=== PATIENT | female | born 1970 | race Caucasian/White ===

== ENCOUNTER → 2017-10-14 | Outpatient (CLI) | payer BC, OTHER ==
[~2017-10-14] VITALS: Ht 149.9 cm; Wt 78.0 kg
[~2017-10-14] MED LIST: IBUPROFEN 800800 M1 PO; LIORESAL 10 MG10 MG PO; LOSARTAN-HCTZ1 EACH PO; METFORMIN HCL1000 MG PO; NABUMETONE 500500 M1 PO; NEURONTIN 300300 M1 PO; PERCOCET PO
--- NOTE | ~2017-10-14 | HPC ---
[facility] [address] [place] [address] PAIN MANAGEMENT CONSULTATION Name: YONATHAN MONZON [id number] Admission: 10/14/17 Attend Phys: Aureliano Cardenas DO Discharge: Date of : 74 Report #: [id number] THIS REPORT FOR: //name// CC: [facility] physician/PCP Aureliano MARTINS DATE OF SERVICE: 10/14/2017 REFERRING PHYSICIAN: LAKSHMI Benson CHIEF COMPLAINT: Neck pain, right upper extremity pain with paresthesias. HISTORY OF PRESENT ILLNESS: As you know, the patient is a 47-year-old female with longstanding history of back pain issues and neck pain issues. The patient states her neck pain began somewhere between 1997 and progressively worsened until 2013 where it reached a level of 6/10. The patient indicates that she has sought chiropractic manipulation, which has helped her neck pain and right upper extremity pain. She continues to experience low back pain, right lower extremity pain with numbness and tingling into her big toe. She has been referred to our service by her physician property assistant for assessment and possible cervical epidural injections for her cervical radiculopathy. The patient states her pain is steady, constant, periodic, describes pain as shooting, pulling, gnawing, sharp, stabbing and tender, places current pain score 6/10, daily average at 5 to 6/10, worst pain has been 10/10. The patient states that bending, lifting, carrying exacerbates symptoms; sitting, lying down, pain medications and the use of a TENS machine tends to improve pain. The patient has been referred to our service to trial cervical epidural injection and determine if symptoms will improve from a cervical radicular standpoint. PAST MEDICAL HISTORY: 1. Hypertension. 2. Chronic pain. PAST SURGICAL HISTORY: 1. Bilateral salpingo-oophorectomy. 2. Hysterectomy with adhesion takedown. SOCIAL HISTORY: The patient denies tobacco, alcohol, IV or illicit drug use. 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 She is working, not receiving workmen's compensation nor is she trying to obtain disability benefits. She is unaccompanied today. REVIEW OF SYSTEMS: Positive for night sweats, fatigue, weakness, frequent and recurrent headaches, asthma, numbness and tingling sensations involving the right upper extremity and right lower extremity. All other review of systems [address] [address] PAIN MANAGEMENT CONSULTATION Name: YONATHAN MONZON Room #: REG CLAnh Donovan#: [id number] Admission: 10/14/17 Attend Phys: Aureliano Cardenas DO Discharge: Date of : 74 Report #: [id number] negative per 12-point review of systems other than those listed in history of present illness. Pain impact score 44/70, indicating [id number] interference of daily activities secondary to pain. ALLERGIES: No reported drug allergies. CURRENT MEDICATIONS: Losartan/hydrochlorothiazide 50/12.5 mg once a day, ibuprofen 800 mg 3 times a day, baclofen 10 mg 3 times a day, oxycodone/acetaminophen 5/325 one tab p.o. q. 4 hours p.r.n. for pain. IMAGING: MRI cervical spine obtained 09/16/2017 shows C2-C3 unremarkable, C3-C4 shows spinal canal is adequate. Mild left uncovertebral degenerative changes, right neural foraminal area is adequate. Mild left neural foraminal stenosis, C4-C5. Central canal is minimally narrowed to 9 mm, severe neural foraminal compromise. C5-C6, severe neural foraminal compromise bilaterally, greater on the right. Central canal narrowed to 7 mm, ventral and subarachnoid space contacted the ventral cord. C6-C7, severe right, moderate left foraminal compromise, central canal appears minimally narrowed and C7-T1 unremarkable. PHYSICAL EXAMINATION: VITAL SIGNS: Blood pressure 151/81, pulse 85, respiratory rate 16, unlabored. The patient is 98% on room air. Height 4 feet 11 inches tall, weight 172 pounds, BMI calculated 34.7. GENERAL: Well-developed, well-nourished, well-hydrated exogenously obese 47-year-old female appearing her stated age. She is placing current pain score at 6/10. HEENT: Normocephalic, atraumatic. Pupils equal, round, reactive to light. Extraocular muscles are intact. Sclerae nonicteric without injection. NEUROLOGIC: Cranial nerves 2 through 12 grossly intact. Speech is fluent. The patient deemed a fair historian. LUNGS: Clear, no wheeze, rhonchi or rales. CARDIOVASCULAR: Regular. No appreciable gallop or rub. ABDOMEN: Soft, obese, nondistended. EXTREMITIES: Show no clubbing, no cyanosis, no edema. MUSCULOSKELETAL: Upper extremity strength appears equal and symmetrical 5/5, muscle bulk and tone equal and symmetrical in upper extremities. Spurling's test is positive on the right, negative left. Deep tendon reflexes are symmetrical at biceps and triceps. Cervical provocation testing including extension and lateral flexion to the right intensify neck pain. ASSESSMENT: 1. Cervical radiculopathy. 2. Displacement of cervical intervertebral disk with radiculopathy. 3. Mild cervical spinal stenosis. [address] [place] [address] PAIN MANAGEMENT CONSULTATION Name: YONATHAN MONZON Room #: REG MARISSA Tyrell.#: [id number] Admission: 10/14/17 Attend Phys: Aureliano Cardenas DO Discharge: Date of : 74 Report #: [id number] 4. Cervical spondylosis with radiculopathy. PLAN: 1. Based on today's physical exam, history the patient has provided, the description the patient uses in regards to pain as well as the location of symptoms and radiation down the right arm, the like source of the patient's pain is a cervical radiculopathy. Given the distribution of symptoms, it appears that the symptoms are radiating from the C5-C6 level which does correlate with the distribution of numbness and tingling into the right hand. We have discussed with the patient the findings of the MRI. We took nearly 24 minutes of time discussing the imaging study and how it correlates to the patient's symptoms. After this discussion, we began discussing treatment options, the following was discussed with the patient. 2. The patient and I discussed treatment options, which would include physical therapy, stretching exercises and traction techniques. We discussed medication management with neuropathic pain medications. We discussed cervical epidural injections for which the patient was referred to our clinic and surgical options. After reviewing the risks and benefits of all proposed treatment options, the patient requested to undergo a cervical epidural injection. 3. The patient and I discussed that third democrat payer restrictions do require that authorization be obtained before the patient could undergo this procedure. Authorization could take anywhere from 4-7 working days, we will begin the process immediately. Once we have achieved authorization, we will have the patient return in followup visit to undergo cervical epidural injection under fluoroscopic guidance. We will contact the patient once the authorization has been obtained so that we can schedule her back as quickly as possible. 4. No medication changes were made at today's visit. The patient will continue current medical therapy as previously prescribed. 5. We will see the patient back in followup visit for the requested cervical epidural injection once authorization has been obtained. 6. We wish to thank you for the opportunity to see the patient in consultation. We will keep you apprised of her response to treatment as we address her cervical radicular symptoms with the cervical epidural injections. Again, we wish to thank you for the opportunity to see her in consultation. <ELECTRONICALLY SIGNED> By: Aureliano Cardenas DO 10/22/17 1131 [id number] Aureliano Cardenas DO /nt
--- NOTE | ~2017-10-14 | HPC ---
[facility] [address] [place] [address] PAIN MANAGEMENT CONSULTATION Name: YONATHAN MONZON Room #: REG [facility] Donovan#: [id number] Admission: 10/14/17 Attend Phys: Aureliano Cardenas DO Discharge: Date of : 74 Report #: [id number] THIS REPORT FOR: //name// CC: [facility] physician/PCP Aureliano MARTINS HISTORY OF PRESENT ILLNESS: As you know, the patient is a 47-year-old female with longstanding history of low back pain, right lower extremity pain with paresthesias, neck pain, right upper extremity pain with paresthesias. The patient was referred to our clinic for evaluation for chronic neck pain issues that began in 1997 and chronic low back pain issues that began in 2013. She states she seeks evaluation and treatment with chiropractor for her neck pain, this resolves her symptoms fairly consistently, but continues to experience numbness and tingling that radiates from the neck to the right fourth and fifth digits. She also continues to experience low back pain, right lower extremity pain and paresthesias that radiates from the low back all the way to the great toe on the right side. She indicates her pain is steady, constant, periodic, describes pain as shooting, pulling, gnawing, sharp, stabbing, tender, numbness and tingling. Places current pain score at 6/10, daily average of 5/10, worst pain has been is 10/10. The patient states bending, lifting, carrying exacerbate symptoms; sitting, lying down, pain medications and TENS unit tends to improve pain. She has been referred to our service to discuss options for treatment for suspected cervical radicular symptoms and suspected lumbar radicular symptoms. PAST MEDICAL HISTORY: 1. Hypertension. 2. Chronic neck pain. 3. Chronic low back pain. PAST SURGICAL HISTORY: 1. Bilateral salpingo-oophorectomy. 2. Hysterectomy. 3. Removal of adhesions. SOCIAL HISTORY: The patient denies tobacco, alcohol, IV or illicit drug use. 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 She is working, not receiving workmen's compensation. She is not in litigation in regards to her pain. She is accompanied by her who is present in room today. REVIEW OF SYSTEMS: Positive for night sweats, fatigue, weakness, frequent and recurrent headaches, asthma, wheezing, numbness and tingling sensations involving the right upper extremity and right lower extremity, chronic neck pain, chronic low back pain. All other review of systems negative per 12-point review of systems other than those listed in history of present illness. Pain impact score 44/70. [address] [address] PAIN MANAGEMENT CONSULTATION Name: SANAM MONZONRALEIGH PERDOMO Room #: REG CLAnh Man#: [id number] Admission: 10/14/17 Attend Phys: Aureliano Cardenas DO Discharge: Date of : 74 Report #: [id number] ALLERGIES: No known drug allergies. CURRENT MEDICATIONS: Losartan/hydrochlorothiazide 50/12.5 mg 1 tab per day, ibuprofen 800 mg t.i.d., baclofen 10 mg p.o. t.i.d. p.r.n., oxycodone/acetaminophen 5/325 one tab p.o. q. 8 hours p.r.n. for pain. IMAGING: MRI cervical spine obtained 09/16/2017 shows C2-C3 unremarkable. C3-C4, spinal canal is adequate, mild left uncovertebral degenerative changes, right neural foraminal overall appearance is adequate, mild narrowing of the left neural foramen. C4-C5, minimal disk osteophyte complex central canal minimally narrowed, mild lateral recess stenosis, uncovertebral and facet arthropathy, fairly severe neural foraminal compromise bilaterally. C5-C6, minimal osteophyte complex, formation of central canal narrowing to 7 mm, uncovertebral and degenerative changes, severe neural foraminal compromise bilaterally right greater than left. C6-C7, minimal disk osteophyte complex, central canal narrowed to 9 mm, bilateral uncovertebral degenerative changes severe right, moderately severe left neural foraminal compromise. C7-T1 unremarkable. PHYSICAL EXAMINATION: VITAL SIGNS: Blood pressure 151/81, pulse 85, respiratory rate 16 and unlabored. The patient is 98% on room air. Height 4 feet 11 inches tall, weight 172 pounds, BMI calculated at 34.7. GENERAL: Well-developed, well-nourished, well-hydrated exogenously obese 47-year-old female. She appears her stated age. She is placing current pain score at 6/10. HEENT: Normocephalic, atraumatic. Pupils equal, round, reactive to light. Extraocular muscles are intact. Sclerae nonicteric without injection. NEUROLOGIC: Cranial nerves 2-12 grossly intact. Speech is fluent. The patient deemed a fair historian. LUNGS: Clear. No wheeze, rhonchi or rales. CARDIOVASCULAR: Regular. No appreciable gallop, no rub. ABDOMEN: Soft, obese, nontender, nondistended, normoactive bowel sounds. EXTREMITIES: Show no clubbing, no cyanosis, no edema. MUSCULOSKELETAL: Upper extremity strength appears equal and symmetrical 5/5, muscle bulk and tone equal and symmetrical in the upper extremities. Deep tendon reflexes are symmetrical at biceps, brachioradialis and triceps. Spurling's test positive on the right, negative left. Cervical provocation testing is met with increasing neck pain, axial in nature. There is some crepitus noted. Moderate restriction of motion both with rotation and lateral flexion. Lower extremity strength equal and symmetrical 5/5, intact to light touch from L1 through S2 dermatomes. Seated straight leg raising positive right, supine straight leg raising positive right. DANNA test negative. Modified Gaenslen's positive for axial low back pain. Ankle clonus negative. Babinski is negative. Deep tendinous reflexes equal, symmetrical at [facility] and [facility] [address] [place] [address] PAIN MANAGEMENT CONSULTATION Name: YONATHAN MONZON Room #: REG [facility]#: [id number] Admission: 10/14/17 Attend Phys: Aureliano Cardenas DO Discharge: Date of : 74 Report #: [id number] Achilles. ASSESSMENT: 1. Symptomatic lumbar radiculopathy. 2. Lumbosacral spondylosis with radiculopathy. 3. Cervical radiculopathy. 4. Cervical facet arthropathy. 5. Neural foraminal stenosis of the cervical spine. 6. Chronic intractable pain. PLAN: 1. The patient has been referred to our service by her primary care team for evaluation and treatment for both cervical radicular symptoms and lumbar radicular symptoms. The patient states that lumbar radicular pain is much more intense and more problematic on a daily basis than is her cervical radicular symptoms. The patient indicates the cervical radicular symptoms are typically alleviated with cervical manipulation by her chiropractor and this lasts for months at a time. She is experiencing cervical radicular symptoms today, but is more concerned about the lumbar radicular symptoms involving the right lower extremity radiating to the right great toe. We have discussed with the patient treatment options, both for the cervical radiculopathy and the lumbar radiculopathy and following was discussed for treatment for both. We discussed physical therapy, stretching exercise, core strengthening. We discussed traction techniques for the cervical region and myofascial release of the lumbar region. We discussed medication management with neuropathic pain medication, which will help not only with the cervical radiculopathy, but the lumbar radiculopathy. These would include medications like Neurontin, Lyrica, nortriptyline and amitriptyline. We discussed cervical epidural injections and lumbar epidural injections to treat radicular symptoms. We also discussed surgical options. After reviewing the risks and benefits of all proposed treatment options, the patient chose to begin with the lumbar epidural injection in hopes of improving lumbar radicular symptoms. The patient was advised that third alliance party payer restrictions require that authorization be obtained. Authorization will take somewhere between 4-7 working days, begin the process immediately for the lumbar epidural injection. We will contact the patient once we have this authorization for the patient to undergo a lumbar epidural injection in hopes of improving her lumbar radicular symptoms. 2. We made no changes in the patient's medical management at this time. Recommend the patient utilize current medication as previously prescribed. She will continue these medications until our next visit. 3. In regards to the patient's cervical radicular symptoms, we did discuss the possibility of having the patient undergo a cervical epidural injection at this [facility] [address] [place] [address] PAIN MANAGEMENT CONSULTATION Name: YONATHAN MONZON Room #: REG Anh Man#: [id number] Admission: 10/14/17 Attend Phys: Aureliano Cardenas DO Discharge: Date of : 74 Report #: [id number] time. The patient states she is going to follow up with her chiropractor. She is going to take the MRI to her chiropractor, so that they can review the findings and discuss chiropractic manipulative options. Certainly, cervical epidural injections could be provided. At this point, the patient wishes to delay that procedure. We wish to thank you for the opportunity to see the patient in consultation. We will keep you apprised of her response to treatment as we address both her lumbar radicular symptoms with epidural injections and her cervical radicular symptoms with the proposed treatment options above. We will keep you apprised of response to the epidural injection as soon as we have this procedure completed. <ELECTRONICALLY SIGNED> By: Aureliano Cardenas DO 10/15/17 0902 [id number] 24 Aureliano Cardenas DO /nt
[2017-10-14 13:29] VITALS: BP 151/81
== END ==
LOC: PAIN 07:13
DX: M48.02 Spinal stenosis, cervical region (principal); M50.10 Cervical disc disorder with radiculopathy, unspecified cervical region; M54.12 Radiculopathy, cervical region; M47.22 Other spondylosis with radiculopathy, cervical region; I10 Essential (primary) hypertension; Z90.710 Acquired absence of both cervix and uterus; Z90.722 Acquired absence of ovaries, bilateral

== ENCOUNTER → 2017-11-04 | Outpatient (CLI) | payer BC, OTHER ==
[~2017-11-04] VITALS: Ht 149.9 cm; Wt 79.4 kg
--- NOTE | ~2017-11-04 | HPC ---
[facility] [place] [address] PAIN MANAGEMENT CONSULTATION Name: YONATHAN MONZON [facility] [id number] Admission: 11/04/17 Attend Phys: Aureliano Cardenas DO Discharge: Date of : 74 Report #: [id number] THIS REPORT FOR: //name// CC: [facility] physician/PCP LAKSHMI Munoz DATE OF SERVICE: 11/04/2017 CHIEF COMPLAINT: Low back pain. HISTORY OF PRESENT ILLNESS: As you know, the patient is a 47-year-old female who has returned today in followup visit to undergo a lumbar epidural injection under fluoroscopic guidance. The patient has received precertification to undergo lumbar epidural injection under fluoroscopic guidance in hopes of improving low back pain. The patient indicates pain today at level of 4-5/10. States pain is constant, aching, shooting and sharp in sensation, exacerbated with standing, lying down, lifting and bending. She has been referred to our clinic for treatment for cervical radiculopathy and possible lumbar radiculopathy. ALLERGIES: No known drug allergies. CURRENT MEDICATIONS: Baclofen, ibuprofen, losartan, hydrochlorothiazide. SOCIAL HISTORY: The patient denies tobacco, alcohol, IV or illicit drug use. 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 She is working, not receiving workmen's compensation, unaccompanied today. IMAGING: No new imaging available. PHYSICAL EXAMINATION: VITAL SIGNS: Blood pressure 151/89, pulse 75, respiratory rate 18, unlabored. The patient is 100% on room air. Height 4 feet 11 inches tall, weight 175 pounds, BMI calculated 35.3. GENERAL: Well-developed, well-nourished, well-hydrated exogenously obese 47-year-old female appearing her stated age. She is in no acute distress, awake, alert and oriented x 3. Current pain score is rated at 4-5/10. HEENT: Normocephalic, atraumatic. Pupils equal, round, reactive to light. EXTREMITIES: Show no clubbing, no cyanosis, no edema. MUSCULOSKELETAL: Lower extremity strength is symmetrical 5/5, intact to light touch from L1 through S2 dermatomes. Seated straight leg raising negative. Supine straight leg raising positive right. DANNA test negative. Modified Gaenslen's positive for axial low back pain. Ankle clonus negative. Babinski is negative. [address] [address] PAIN MANAGEMENT CONSULTATION Name: YONATHAN MONZON Room #: [facility] [id number] Admission: 11/04/17 Attend Phys: Aureliano Cardenas DO Discharge: Date of : 74 Report #: [id number] ASSESSMENT: 1. Symptomatic lumbar radiculopathy. 2. Lumbosacral spondylosis with radicular symptoms. 3. Chronic intractable pain. PLAN: 1. The patient has returned today in followup visit, having received precertification to undergo a lumbar epidural injection under fluoroscopic guidance. We have received precertification to undergo the procedure today. The patient has been advised of the risks and the benefits of this procedure. These risks include but not necessarily limited to bleeding, bruising, infection, worsening pain, no relief of pain, also risk of temporary or permanent muscle weakness, temporary or permanent paralysis and . The patient states she understood and wished to proceed. 2. No medication changes were made at today's visit. The patient will continue current medical therapy as previously prescribed. 3. The patient will return to our clinic on an as-needed basis for the next in a series of epidural injections. DESCRIPTION OF PROCEDURE: L5-S1 right paramedian epidural steroid injection under fluoroscopic guidance. This is the first procedure of the first series that the patient is undergoing. After obtaining written consent, the patient was taken back to the fluoroscopy suite, placed in a prone position with pillow under the abdomen to decrease lumbar lordosis. The skin overlying the lumbosacral area was then prepped and draped in aseptic fashion. The L5-S1 vertebral interspace was then identified by AP fluoroscopy. The skin and subcutaneous tissue overlying the target site of injection was anesthetized with 3 mL 1% lidocaine. A 20-gauge, 3-1/2-inch Tuohy needle was then advanced under fluoroscopic guidance towards the epidural space using a right paramedian approach. The epidural space was identified using loss of resistance to air technique. After negative aspiration for heme or cerebrospinal fluid, a total of 1 mL of Omnipaque was injected. A lumbar epidurogram was confirmed using both AP and lateral fluoroscopy. After negative aspiration for heme or cerebrospinal fluid, 5 mL of a solution containing 2 mL 40 mg per mL 80 mg total triamcinolone, 3 mL of lidocaine 1% was injected in increments. Contrast spread was noted in the posterior epidural space. The needle was then retracted approximately half way and needle tract flushed with 1 mL of 1% lidocaine. Needle was then removed. There were no apparent sensory or motor deficits in the lower extremity following the procedure. A sterile bandage was placed over the injection site. The heart rate, pulse, oximetry and blood pressure were continuously monitored after the procedure. There were no apparent complications. The patient [address] [address] PAIN MANAGEMENT CONSULTATION Name: YONATHAN MONZON Room #: REG Anh Man#: [id number] Admission: 11/04/17 Attend Phys: Aureliano Cardenas DO Discharge: Date of : 74 Report #: [id number] tolerated the procedure well and was carefully escorted to the recovery room in stable condition. There were no apparent complications. After meeting discharge criteria, the patient was then discharged home. <ELECTRONICALLY SIGNED> By: Aureliano Cardenas DO 11/05/17 0717 [id number] [id number] Aureliano Cardenas DO /nt
[2017-11-04 09:08] VITALS: BP 151/89
== END ==
LOC: PAIN 07:01
DX: M47.27 Other spondylosis with radiculopathy, lumbosacral region (principal); G89.29 Other chronic pain; M54.5 Low back pain; Z79.899 Other long term (current) drug therapy

== ENCOUNTER → 2018-06-09 | Outpatient (CLI) | payer BC, OTHER ==
[~2018-06-09] VITALS: Ht 149.9 cm; Wt 76.1 kg
[~2018-06-09] MED LIST changes: -METFORMIN HCL1000 MG PO; -NEURONTIN 300300 M1 PO
--- NOTE | ~2018-06-09 | HPC ---
[facility] [place] [address] PAIN MANAGEMENT CONSULTATION Name: YONATHAN MONZON [id number] Admission: 06/09/18 Attend Phys: Aureliano Cardenas DO Discharge: Date of : 74 Report #: [id number] THIS REPORT FOR: //name// CC: FAM physician/PCP LAKSHMI Munoz DATE OF SERVICE: 06/09/2018 REFERRING PHYSICIAN: LAKSHMI Benson CHIEF COMPLAINT: Low back pain, bilateral lower extremity pain with paresthesias. HISTORY OF PRESENT ILLNESS: As you know, the patient is a 48-year-old female who returns today in followup visit to undergo epidural injection under fluoroscopic guidance. We have received precertification for the patient to undergo the procedure today. She has returned to undergo the injection. She has been advised of the risks and benefits, states understood and wished to proceed. The patient places current pain score at 6-7/10. She has had no changes in medical history since our last visit. ALLERGIES: No known drug allergies. CURRENT MEDICATIONS: Percocet, baclofen, nabumetone, losartan, hydrochlorothiazide. SOCIAL HISTORY: The patient denies tobacco, alcohol, or IV illicit drug use. 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 IMAGING: No new imaging available. PHYSICAL EXAMINATION: VITAL SIGNS: Blood pressure 127/85, pulse 81, respiratory rate 20 and unlabored. The patient is 100% on room air. Height 4 feet 11 inches tall, weight 167.8 pounds, BMI calculated 33.9. GENERAL: Well-developed, well-nourished, well-hydrated exogenously obese 48-year-old female, appearing stated age, placing current pain score 6-7/10. HEENT: Normocephalic, atraumatic. Pupils equal, round, reactive to light. EXTREMITIES: Show no clubbing, no cyanosis, no edema. MUSCULOSKELETAL: Lower extremity strength remains symmetrical 5/5. Muscle bulk and tone is symmetrical when comparing the left lower extremity to the right lower extremity. Seated straight leg raising negative. Supine straight leg raising mildly positive to the right. Allie's test negative. [address] [address] PAIN MANAGEMENT CONSULTATION Name: SA[facility]RALE[facility]PITAL[facility]lin Room #: REG MAR[facility]SA Man#: [id number] Admission: 06/09/18 Attend Phys: Aureliano Cardenas DO Discharge: Date of : 74 Report #: [id number] ASSESSMENT: 1. Lumbar radiculopathy. 2. Lumbosacral spondylosis with radiculopathy. 3. Myofascial pain. 4. Chronic intractable pain. PLAN: 1. The patient returns today in followup visit requesting to undergo epidural injection under fluoroscopic guidance. We have received precertification for the patient to undergo the procedure today to address lumbar radicular symptoms. She has been advised of the risks and the benefits of this procedure. These risks include but are not necessarily limited to bleeding, bruising, infection, worsening pain, no relief of pain, also risk of temporary or permanent muscle weakness, temporary or permanent nerve damage, possible paralysis and . The patient states she understood and wished to proceed. 2. The patient will return to our clinic on an as needed basis for the next in the series of epidural injections. PROCEDURE NOTE DESCRIPTION OF PROCEDURE: L5-S1 right paramedian epidural steroid injection under fluoroscopic guidance. This is the third procedure of the first series that the patient is undergoing. After obtaining written consent, the patient was taken back to the fluoroscopy suite, placed in a prone position with pillow under the abdomen to decrease lumbar lordosis. The skin overlying the lumbosacral area was then prepped and draped in aseptic fashion. The L5-S1 vertebral interspace was then identified by AP fluoroscopy. The skin and subcutaneous tissue overlying the target site of injection was anesthetized with 3 mL 1% lidocaine. A(n) 20-gauge 3-1/2 inch Tuohy needle was then advanced under fluoroscopic guidance towards the epidural space using a right paramedian approach. The epidural space was identified using loss of resistance to air technique. After negative aspiration for heme or cerebrospinal fluid, a total of 1 mL of Omnipaque was injected. A lumbar epidurogram was confirmed using both AP and lateral fluoroscopy. After negative aspiration for heme or cerebrospinal fluid, 5 mL of a solution containing 2 mL 40 mg per mL, 80 mg total triamcinolone, 3 mL of lidocaine 1% was injected in increments. Contrast spread was noted in the posterior epidural space. The needle was then retracted approximately half way and needle tract flushed with 1 mL of 1% lidocaine. Needle was then removed. There were no apparent sensory or motor deficits in the lower extremity following the procedure. A sterile bandage was placed over the injection site. The heart rate, pulse, oximetry and blood pressure were continuously monitored [address] [address] PAIN MANAGEMENT CONSULTATION Name: YONATHAN MONZON Room #: REG MARISSA Man#: [id number] Admission: 06/09/18 Attend Phys: Aureliano Cardenas DO Discharge: Date of : 74 Report #: [id number] after the procedure. There were no apparent complications. The patient tolerated the procedure well and was carefully escorted to the recovery room in stable condition. There were no apparent complications. After meeting discharge criteria, the patient was then discharged home. <ELECTRONICALLY SIGNED> By: Aureliano Cardenas DO 06/16/18 1256 [id number] Aureliano Cardenas DO /nt
[2018-06-09 10:06] VITALS: BP 127/85
== END | disposition home or self-care (01) ==
LOC: PAIN 07:15
DX: M51.16 Intervertebral disc disorders with radiculopathy, lumbar region (principal); M79.1 Myalgia; G89.29 Other chronic pain; M47.27 Other spondylosis with radiculopathy, lumbosacral region; Z79.899 Other long term (current) drug therapy; Z98.890 Other specified postprocedural states

== ENCOUNTER → 2018-07-07 | Outpatient (CLI) | payer BC, OTHER ==
[~2018-07-07] VITALS: Ht 149.9 cm; Wt 74.1 kg
[~2018-07-07] MED LIST changes: +NEURONTIN 300300 M1 PO
--- NOTE | ~2018-07-07 | HPC ---
[facility] [place] [address] PAIN MANAGEMENT CONSULTATION Name: YONATHAN MONZON Room #: REG [facility]..#: [id number] Admission: 07/07/18 Attend Phys: Aureliano Cardenas DO Discharge: Date of : 74 Report #: [id number] THIS REPORT FOR: //name// CC: Aureliano Cardenas Physician staff HARJINDER MARTINS DATE OF SERVICE: 07/07/2018 REFERRING PHYSICIAN: LAKSHMI Benson CHIEF COMPLAINT: Low back pain, bilateral lower extremity pain with paresthesias. HISTORY OF PRESENT ILLNESS: As you know, the patient is a 48-year-old obese female who returns today in followup visit indicating no improvement in symptoms with previous epidural injection. She indicates her pain remains uncontrolled. She places pain score at 6/10, states her pain is tender, aching, sharp, stabbing and throbbing in sensation, exacerbated with standing, improves with medications, TENS units, seated position and previous injections. She returns today in followup visit to discuss options for treatment as she has noted no benefit with previous epidural injection. She denies any new injury or new trauma that may have led to symptom recurrence. She is taking time-out of work periodically for pain issues. Apparently, she has been recently to the Emergency Department for evaluation, which showed no new findings. She returns today to discuss options for treatment. ALLERGIES: No known drug allergies. CURRENT MEDICATIONS: Percocet, baclofen, nabumetone, losartan, hydrochlorothiazide. SOCIAL HISTORY: The patient denies tobacco, alcohol, IV or illicit drug use. 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 IMAGING: No new imaging available. PHYSICAL EXAMINATION: VITAL SIGNS: Blood pressure 136/88, pulse is 74, respiratory rate 16 and unlabored. The patient is 100% on room air. Height 4 feet 11 inches tall, weight 163.4 pounds, BMI calculated 33.0. GENERAL: Well-developed, well-nourished, well-hydrated, morbidly obese 48-year-old female, appearing stated age, placing current pain score 6/10. HEENT: Normocephalic, atraumatic. Pupils equal, round, reactive to light. [address] [address] PAIN MANAGEMENT CONSULTATION Name: SANAM MONZONANNAMRITA PERDOMO Room #: REG [facility] Man#: [id number] Admission: 07/07/18 Attend Phys: Aureliano Cardenas DO Discharge: Date of : 74 Report #: [id number] Extraocular muscles are intact. Speech is fluent. EXTREMITIES: Show no clubbing, no cyanosis, no edema. MUSCULOSKELETAL: Lower extremity strength is 5/5. Muscle bulk and tone equal and symmetrical in comparing left lower extremity to the right. Seated straight leg raising negative. Supine straight leg raising mildly positive on the right. This is noted at 70 degree angle. Allie's test negative. Ankle clonus negative. Babinski is negative. Gait is normal. ASSESSMENT: 1. Suspected lumbar radiculopathy. 2. Lumbosacral spondylosis with radicular symptoms. 3. Continued Myofascial pain. 4. Obesity. 5. Deconditioning. 6. Chronic intractable pain. PLAN: 1. The patient returns today in followup visit indicating no improvement in symptoms with the previous epidural injection. The patient has been noticing less of effects with each subsequent epidural injection, which would be concerning for either pathology that is not consistent with her distribution of pain such as symptoms more related to facet arthropathy of the lumbar spine and not towards the lumbar radicular symptoms she has been complaining or her symptoms may have changed significantly and surgical options may be necessary. We reviewed this with the patient today, would recommend further imaging and will send the patient for MRI. 2. The patient was provided a prescription for MRI of the lumbar spine without contrast. She will undergo the procedure as quickly as possible. We will review the findings once they are available. 3. The patient has a significant deconditioning, her core strength is poor. I believe that she would see some benefit with physical therapy and a concerted effort at weight loss and core strengthening. We have offered this to the patient today. The patient states that she is unable to participate due to her work schedule and daily life activity. This is unfortunate as I believe it would be quite beneficial. We will continue to offer this as a treatment option as it is much more effective at pain relief than continuation of opioid medications. 4. The patient will return to our clinic once she has completed her MRI. We will review the findings at that time and discuss the options for treatment. I have placed a standing appointment with the patient to be seen back to review this imaging study. If she wishes to have results earlier, she can contact our clinic and we can provide her a preliminary read of the MRI prior to her visit. 5. The patient requested release of work for future dates. I have advised the patient, we would not be providing a release from work for future dates as this would be an unpredictable type of process and there is no guarantee the patient would require dates off for exacerbation of pain. The patient will need to [address] [address] PAIN MANAGEMENT CONSULTATION Name: YONATHAN MONZON Room #: REG [facility]#: [id number] Admission: 07/07/18 Attend Phys: Aureliano Cardenas DO Discharge: Date of : 74 Report #: [id number] follow up with her PCP if she has pain issues that we cannot see on that day or she can be seen at the Emergency Department for ongoing pain issues. We deal with chronic pain issues and do not provide release of work for future dates as this would not be appropriate. 6. We will see the patient back in followup visit once she has completed her MRI. By: [id number] Aureliano Cardenas DO /nt
[2018-07-07 08:59] VITALS: BP 136/88
== END ==
LOC: PAIN 06:15
DX: M47.27 Other spondylosis with radiculopathy, lumbosacral region (principal); G89.4 Chronic pain syndrome; E66.9 Obesity, unspecified; M79.18 Myalgia, other site; Z79.899 Other long term (current) drug therapy

== ENCOUNTER → 2018-07-10 | Outpatient (CLI) | payer BC, OTHER | LOC: MRI 12:10 | DX: M51.15 Intervertebral disc disorders with radiculopathy, thoracolumbar region (principal); M51.17 Intervertebral disc disorders with radiculopathy, lumbosacral region; M41.86 Other forms of scoliosis, lumbar region ==

== ENCOUNTER → 2018-07-14 | Outpatient (CLI) | payer BC, OTHER ==
[~2018-07-14] VITALS: Ht 149.9 cm; Wt 73.9 kg
[~2018-07-14] MED LIST changes: +METFORMIN HCL1000 MG PO
--- NOTE | ~2018-07-14 | HPC ---
[facility] [place] [address] PAIN MANAGEMENT CONSULTATION Name: YONATHAN MONZON Room #: REG [facility] MAnnVitaly.#: [id number] Admission: 07/14/18 Attend Phys: Aureliano Cardenas DO Discharge: Date of : 74 Report #: [id number] THIS REPORT FOR: //name// CC: Aureliano Cardenas Physician staff HARJINDER MARTINS DATE OF SERVICE: 07/14/2018 REFERRING PHYSICIAN: LAKSHMI Benson CHIEF COMPLAINT: Low back pain, bilateral lower extremity pain. HISTORY OF PRESENT ILLNESS: As you know, the patient is a 48-year-old female who returns today in followup visit to review recent MRI imaging. She reports pain today levels of about 4/10. She recently discontinued her gabapentin as she did not feel it was beneficial. She returns today in followup visit to review the MRI findings and to discuss treatment options based on those imaging studies. She denies new injury, new trauma or any changes in medical history since our last visit. ALLERGIES: No known drug allergies. CURRENT MEDICATIONS: Percocet, baclofen, nabumetone, losartan, hydrochlorothiazide. SOCIAL HISTORY: The patient denies tobacco, alcohol, IV or illicit drug use. 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 IMAGING: MRI of lumbar spine obtained without contrast on 07/10/2018 shows only minimal scoliotic curvature, a small disk protrusion noted at the T12-L1 level without impingement of the central canal or neural foramen. There is minimal disk bulging at L5-S1. No impingement of the canal or neural foramen. This is essentially a normal MRI of a 48-year-old female. PHYSICAL EXAMINATION: VITAL SIGNS: Blood pressure 117/71, pulse is 89, respiratory rate 16 and unlabored. The patient is 98% on room air. Height 4 feet 11 inches tall, weight 163 pounds, BMI calculated 32.9. GENERAL: Well-developed, well-nourished, well-hydrated exogenously obese 48-year-old female appearing her stated age, placing current pain score at 4/10. HEENT: Normocephalic, atraumatic. Pupils equal, round, reactive to light. Extraocular muscles are intact. Sclerae nonicteric without injection. [facility] [address] [place] [address] PAIN MANAGEMENT CONSULTATION Name: SANAM MONZONRALEIGH Room #: REG [facility] Donovan#: [id number] Admission: 07/14/18 Attend Phys: Aureliano Cardenas DO Discharge: Date of : 74 Report #: [id number] NEUROLOGIC: Cranial nerves 2 through 12 grossly intact. Speech fluent. EXTREMITIES: Show no clubbing, no cyanosis, no edema. MUSCULOSKELETAL: Lower extremity strength is equal and symmetrical 5/5, muscle bulk and tone equal and symmetrical in lower extremities bilaterally. Seated straight leg raising negative. Supine straight leg raising mildly positive at 70 degrees. Allie's test negative. Modified Gaenslen's positive for axial low back pain. Ankle clonus negative. Babinski is negative. Gait is normal. ASSESSMENT: 1. Small disk herniation at T12-L1, uncomplicated. 2. Minimal disk bulge at L5-S1, uncomplicated. 3. Myofascial pain. 4. Obesity. 5. Deconditioning. PLAN: 1. The patient returns today in followup visit where we have taken an extended period of time to review MRI that was obtained 07/10/2018. I am pleased to advise the patient at this time, there is no noted pathology in her lumbar region. The small disk protrusion at T12-L1 is typical finding in a 48-year-old female who has no bearing on central canal or neural foraminal stenosis and thus is providing no pain generation. Same as for the L5-S1, there is no nerve root impingement. No central canal stenosis. The mild disk bulge is a typical finding in a 48-year-old overweight female. I have advised the patient at this time further injections will not be necessary. I am pleased to advise the patient her chopra to improving the symptoms is exercise, weight loss and core strengthening. Certainly anti-inflammatory medications could be continued, though I would recommend no more than twice a day. Overall, I feel the patient will improve significantly with physical therapy, stretching exercise, core strengthening and weight loss, which is all that is required to treat her back issues. 2. We will see the patient back in followup visit on an as needed basis. As indicated above, she does not need any further interventional treatments to address axial back pain issues. I understand the patient does periodically have some back issues. I believe this is more related to strain and overuse syndrome, which can be addressed with ergonomic changes in her work space and at home. She can bring this up with her human resources individual at the [employer] From an interventional standpoint, no further treatments will be necessary through our services. We recommend she return to her PCP to continue anti-inflammatory medications only. Based on the lack of pathology in the MRI, I do not feel the patient needs to continue on opioid medications as these are not necessary in her case. We will defer to the primary team to make adjustments in those therapies. 3. We are pleased to advise the patient of the findings of her MRI today. This is excellent news for the patient, she no longer needs interventional treatments based on her current imaging and physical exam nor does she need any surgical [facility] [address] [place] [address] PAIN MANAGEMENT CONSULTATION Name: YONATHAN MONZON Room #: REG [facility].#: [id number] Admission: 07/14/18 Attend Phys: Aureliano Cardenas DO Discharge: Date of : 74 Report #: [id number] options. I would recommend that she resort to physical therapy, stretching exercise, core strengthening, weight loss as the most effective treatment option. We wish to thank you for the opportunity to see the patient in consultation, be returning her care to your capable hands. <ELECTRONICALLY SIGNED> By: Aureliano Cardenas DO 07/15/18 1704 0943 1604 Aureliano Cardenas DO /nt
[2018-07-14 09:08] VITALS: BP 117/71
== END ==
LOC: PAIN
DX: M51.26 Other intervertebral disc displacement, lumbar region (principal); M79.18 Myalgia, other site; E66.9 Obesity, unspecified; M51.27 Other intervertebral disc displacement, lumbosacral region

== ENCOUNTER → 2019-06-30 | Outpatient (CLI) | payer BC, OTHER ==
[~2019-06-30] VITALS: Ht 149.9 cm; Wt 76.8 kg
[2019-06-30 12:53] VITALS: BP 150/101
--- NOTE | 2019-06-30 12:57 | NUR ---
Pain Clinic Assessment: 1. History of Osteoarthritis: BACK History of Rheumatoid Arthritis: Not Applicable 2. Height: 4 ft. 11 in. 149.9 cm. Weight: 169.4 lb. oz. 76.839 kg. Patient's BMI: 34.2 3. Vital Signs: BP: 150/101 Pulse: 83 Resp: 18 Temp: 02 Sat: 93 ECG Mon: 4. Pain Intensity: 6 5. Fall Risk: Dizziness: N Needs help standing or walking: N Fallen in the last 3 months: N Fall risk comments: 6. Patient on Blood Thinner: None 7. History of Hypertension: Y 8. Opioid Therapy greater than 6 weeks: N Opiate Contract Signed: 9. Risk Assessment Tool Provided: LOW RISK 0/3 10. Functional Assessment Tool: 11. Recreational Drug Use: Never Drug Type: Tobacco Use: Never Smoker Tobacco Type: Amount or Packs/day: How Many Years: Alcohol Use: No Frequency: Quant:
--- NOTE | 2019-07-01 08:51 | HPC ---
[facility] [address] [place] [address] PAIN MANAGEMENT CONSULTATION Name: YONATHAN MONZON Room #: REG MARISSA Man#: [id number] Admission: 06/30/19 Attend Phys: Sobia Rowley Discharge: Date of : 74 Report #: [id number] THIS REPORT FOR: //name// CC: Sobia Rowley [facility] physician/PCP DATE OF SERVICE: 06/30/2019 CHIEF COMPLAINT: Low back pain, right leg pain, bilateral lower extremity pain and paresthesias. HISTORY OF PRESENT ILLNESS: This is a 49-year-old female who returns to the pain clinic today for refill of her nabumetone. She reports that, that is quite helpful in relieving some of her low back pain. She reports that the nurse practitioner that she was seeing as well as a primary care doctor are no longer practicing. She is looking for a new primary care doctor, so therefore she returned to the clinic today for refill of this nabumetone. We had last seen her greater than one year ago and she reports that she has been doing quite well until recently she has undergone a tattoo on her right leg that has caused her to have leg pain and swelling in her right leg. She says because of this, she has been walking differently and she has been having some sciatica recently in her lower back, though this has just been since her tattoo was finished. She said prior to that, she had been doing quite well for a significant amount of time since the injection by Dr. Cardenas had performed on her last year. The patient reports a pain score of 6/10, which is a throbbing, aching pain in her lumbar spine and again in her right leg. It is worse with walking and working and lifting, but the medication of nabumetone is very beneficial. ALLERGIES: No known drug allergies. CURRENT LIST OF MEDICATIONS: Metformin 1000 mg b.i.d., baclofen 10 mg p.r.n., losartan/hydrochlorothiazide 50/12.5 daily. PQRS: 1. She has a history of osteoarthritis in her lumbar spine. Denies any rheumatoid arthritis. 2. Height is 4 feet 11 inches, weight is 169, BMI is 34. Vital signs 150/101, pulse is 83, respirations 18, oxygen sat is 93. 3. Pain score 6/10. 4. Denies dizziness, does not need help walking or standing, has not fallen in the last 3 months. 5. The patient is not on any blood thinners, but does have a history of hypertension. 6. Opioid therapy is not needed. She is not on any opioids. Her risk assessment tool is low. Functional assessment is 44/70[place] [address] PAIN MANAGEMENT CONSULTATION Name: YONATHAN MONZON Room #: REG MARISSA Man#: [id number] Admission: 06/30/19 Attend Phys: Sobia Rowley Discharge: Date of : 74 Report #: [id number] 7. Recreational drug use, she denies. She is not a smoker and does not drink alcohol. PHYSICAL EXAMINATION: GENERAL: This is a well-developed, well-nourished, well-hydrated, morbidly obese 49-year-old female who appears her stated age, placing her current pain score at 6/10. HEENT: Normocephalic, atraumatic. Pupils equal, round and reactive to light. Extraocular muscles are intact. EXTREMITIES: No clubbing, no cyanosis. Slight 1+ edema in her right lower extremity. MUSCULOSKELETAL: Lower extremity strength is 5/5. Muscle tone is equal and symmetrical. She does have seated straight raising positive on the right. Her gait is slightly antalgic today, complains of tenderness in the lumbosacral region. ASSESSMENT: 1. Suspected lumbar radiculopathy. 2. Lumbosacral spondylosis with radicular symptoms. 3. Continue myofascial pain. 4. Obesity. 5. Chronic intractable pain. PLAN: 1. We discussed treatment options with the patient today. According to the medication reconciliation records, it looks like the patient has recently filled Motrin as well as meloxicam. The patient instructed to only take nabumetone, not to take Motrin, Ibuprofen or Advil when she is taking nabumetone. She was warned about the side effects of GI issues and kidney issues from too much anti-inflammatory. The patient verbalizes understanding and tells me that she will only take the nabumetone and does not take it every day. Scripts given today for nabumetone 500 mg #90 with 5 additional refills. 2. The patient instructed to try and find a primary care doctor that is willing to write for this medication or a nurse practitioner since her most recent doctor has retired. 3. I encouraged the patient if her leg continues to swell or if she has increased redness to seek medical attention as well due to her recent tattoo she had placed on her right lower extremity. She verbalizes understanding. 4. The patient is seen in collaboration with Dr. Aureliano Cardenas. <ELECTRONICALLY SIGNED> By: Sobia Rowley 07/01/19 0851 [id number] Sobia Rowley /natacha
== END ==
LOC: PAIN 07:16
DX: M47.27 Other spondylosis with radiculopathy, lumbosacral region (principal); E66.09 Other obesity due to excess calories; M79.18 Myalgia, other site; G89.4 Chronic pain syndrome